=== PATIENT | female | born 1965 | race Caucasian/White ===

== ENCOUNTER 2022-01-18 18:46 | Emergency (ER) | payer MEDICAID ==
[2022-01-18] MEDS ORDERED: traMADol 50 MG Tab PO ONE (18:47)
== END 2022-01-18 20:20 | disposition home or self-care (01) ==
LOC: FB.ED 18:46
DX: S06.0X0A Concussion without loss of consciousness, initial encounter (principal); S00.81XA Abrasion of other part of head, initial encounter; W00.0XXA Fall on same level due to ice and snow, initial encounter
CPT/HCPCS: 73110; 99283; A9270